=== PATIENT | female | born 1990 | race American Indian/Alaskan Native ===

== ENCOUNTER 2018-03-04 10:29 | Emergency (ER) | payer MEDICAID, OTHER ==
[2018-03-04 10:50] VITALS: BP 114/77
[2018-03-04 11:24] LABS: Bilirubin,Urine NEG (Negative); Blood,Urine MOD (Negative); Color,Urine Yellow (Yellow); Mucus,Urine 3+ /HPF; Protein,Urine <15 mg/dL mg/dL (Negative); Urobilinogen,Urine < 2.0 mg/dL (<2.0)
[2018-03-04 11:25] LABS: HCG Qualitative,Urine Negative (Negative)
--- NOTE | 2018-03-04 11:32 | Emergency Department Report ---
ED Abdominal Pain HPI - General Chief Complaint: Abdominal Pain Stated Complaint: LFT KNEE PAIN/STOMACH PAIN Time Seen by Provider: 03/04/18 10:58 Source: patient Mode of arrival: Ambulatory Limitations: No Limitations - History of Present Illness Initial Comments: 27-year-old female reports lower abdominal pain 1 month. Patient states her pain radiates around both sides to her back. Also reports urinary frequency. Patient states she is currently on her menstrual period, however prior to this patient denies vaginal bleeding or discharge. The patient also reports lateral left knee pain when walking up stairs. Denies swelling, denies any injury. No pain with walking on flat surface MD Complaint: abdominal pain -: month(s) (1) Location: suprapubic Radiation: back Migration to: no migration Severity: mild Quality: cramping, sharp Consistency: intermittent Improves With: nothing Worsens With: nothing Associated Symptoms: denies: nausea, vomiting, diarrhea, fever, dysuria - Related Data Home Medications Medication Instructions Recorded Confirmed Last Taken Vit 93/Iron Fum/Folic 1 each PO QDAY 10/22/13 10/24/13 10/01/13 20:00 [ Formula Tablet] 1 Previous Rx's Medication Instructions Recorded Last Taken Type Ferrous Sulfate [Feosol 325 MG tab] 325 mg PO QDAY #60 tablet 10/27/13 Unknown Rx Ibuprofen [Motrin 600 MG tab] 600 mg PO Q6H #30 tablet 10/27/13 Unknown Rx Vit-Fe Fumar-FA [ 1 each PO QDAY #60 tablet 10/27/13 Unknown Rx Vitamin] oxyCODONE /ACETAMINOPHEN [Percocet 1 tab PO Q6H PRN #30 tablet 10/27/13 Unknown Rx 5/325 mg] Naproxen [Naprosyn] 500 mg PO BID #20 tablet 03/04/18 Unknown Rx Phenazopyridine [Pyridium] 200 mg PO TID #6 tab 03/04/18 Unknown Rx Sulfamethoxazole/Trimethoprim 1 each PO BID #6 tablet 03/04/18 Unknown Rx [Bactrim DS TAB] Allergies Allergy/AdvReac Type Severity Reaction Status Date / Time No Known Allergies Allergy Verified 10/22/13 16:33 ED Review of Systems ROS: Stated complaint: LFT KNEE PAIN/STOMACH PAIN Other details as noted in HPI Comment: All other systems reviewed and negative Constitutional: denies: chills, fever Gastrointestinal: abdominal pain. denies: nausea, vomiting, diarrhea Genitourinary: frequency. denies: dysuria, discharge ED Past Medical Hx - Past Medical History Hx Hypertension: No Hx Congestive Heart Failure: No Hx Diabetes: No Hx Deep Vein Thrombosis: No Hx Renal Disease: No Hx Sickle Cell Disease: No Hx Seizures: No Hx Asthma: No Hx COPD: No Hx HIV: No - Surgical History Past Surgical History?: Yes Additional Surgical History: C section - Social History Smoking Status: Never Smoker Substance Use Type: None - Medications Home Medications: Home Medications Medication Instructions Recorded Confirmed Last Taken Type Vit 93/Iron Fum/Folic 1 each PO QDAY 10/22/13 10/24/13 10/01/13 20:00 History [ Formula Tablet] 1 Ferrous Sulfate [Feosol 325 MG tab] 325 mg PO QDAY #60 tablet 10/27/13 Unknown Rx Ibuprofen [Motrin 600 MG tab] 600 mg PO Q6H #30 tablet 10/27/13 Unknown Rx Vit-Fe Fumar-FA [ 1 each PO QDAY #60 tablet 10/27/13 Unknown Rx Vitamin] oxyCODONE /ACETAMINOPHEN [Percocet 1 tab PO Q6H PRN #30 tablet 10/27/13 Unknown Rx 5/325 mg] Naproxen [Naprosyn] 500 mg PO BID #20 tablet 03/04/18 Unknown Rx Phenazopyridine [Pyridium] 200 mg PO TID #6 tab 03/04/18 Unknown Rx Sulfamethoxazole/Trimethoprim 1 each PO BID #6 tablet 03/04/18 Unknown Rx [Bactrim DS TAB] ED Physical Exam - General Limitations: No Limitations General appearance: alert, in no apparent distress - Head Head exam: Present: atraumatic, normocephalic - Eye Eye exam: Present: normal appearance - ENT ENT exam: Present: mucous membranes moist - Respiratory Respiratory exam: Present: normal lung sounds bilaterally. Absent: respiratory distress - Cardiovascular Cardiovascular Exam: Present: regular rate, normal rhythm - GI/Abdominal GI/Abdominal exam: Present: soft. Absent: distended, tenderness - Extremities Exam Extremities exam: Present: normal inspection, full ROM. Absent: tenderness - Back Exam Back exam: Absent: CVA tenderness (R), CVA tenderness (L) - Neurological Exam Neurological exam: Present: alert, oriented X3 - Psychiatric Psychiatric exam: Present: normal affect, normal mood - Skin Skin exam: Present: warm, dry, intact, normal color ED Course Vital Signs 03/04/18 10:47 Temperature 98.0 F Pulse Rate 73 Respiratory 16 Rate Blood Pressure 114/77 O2 Sat by Pulse 100 Oximetry Critical care attestation.: If time is entered above; I have spent that time in minutes in the direct care of this critically ill patient, excluding procedure time. ED Disposition Clinical Impression: UTI (urinary tract infection), Internal derangement of knee Disposition: - TO HOME OR SELFCARE Is pt being admited?: No Condition: Stable Instructions: Urinary Tract Infection in Women (ED), Knee Pain (ED) Prescriptions: Naproxen [Naprosyn] 500 mg PO BID #20 tablet Phenazopyridine [Pyridium] 200 mg PO TID #6 tab Sulfamethoxazole/Trimethoprim [Bactrim DS TAB] 1 each PO BID #6 tablet Referrals: PRIMARY [facility] [Primary Care Provider] - 3-5 Days PHU LECHUGA MD [Staff Physician] - 3-5 Days Time of Disposition: 11:30
[2018-03-04] MEDS ORDERED: NACL 0.9% 1000 ML 2,000 ML ONE (12:00)
== END 2018-03-04 12:01 | disposition home or self-care (01) ==
LOC: ED 10:29
DX: N39.0 Urinary tract infection, site not specified (principal); M24.9 Joint derangement, unspecified
CPT/HCPCS: 81001; 81025; 99283; J7030

== ENCOUNTER 2018-04-22 09:03 | Emergency (ER) | payer OTHER ==
[2018-04-22 09:22] VITALS: BP 117/74
--- NOTE | 2018-04-22 10:32 | Emergency Department Report ---
Chief Complaint: Medical Clearance Stated Complaint: N/V Time Seen by Provider: 04/22/18 10:07 - HPI History of Present Illness: This is a 27-year-old female with no prior medical history presents to ED complaining of feelings of nausea and loss of appetite and stating she took a home test that was positive. Patient reports last menstrual period 03/04/2018. She states she wanted to find out if she is actually . She denies abdominal pain, pelvic pain, vaginal bleed, headache chest pain shortness of breath. The symptoms. - ROS Review of Systems: Denies all other symptoms - Exam Vital Signs: Vital Signs 04/22/18 09:18 Temperature 98.8 F Pulse Rate 87 Respiratory 16 Rate Blood Pressure 117/74 O2 Sat by Pulse 99 Oximetry Physical Exam: GENERAL: Alert and oriented x3, no apparent distress, Normal Gait, atraumatic. ABDOMEN: No organomegaly was noted,Positive bowel sounds, soft, and non- distended. . Nontender to palpation on all Quadrants, SKIN: Warm and dry, No lesions, No ulceration or induration present. MSE screening note: Focused history and physical exam performed. Due to findings the following was ordered: ED Medical Decision Making - Medical Decision Making Quantitative beta hCG ordered. Quantitative beta-hCG level was Discussed findings with the patient. Discussed the patient have follow-up with [facility] as referred. Referrals given to patient. Patient understands instructions and will follow-up. Patient says it's early and will need to follow-up. Discussed vitamins as needed daily. ED Disposition for MSE Clinical Impression: test positive Disposition: - TO HOME OR SELFCARE Is pt being admited?: No Does the pt Need Aspirin: No Condition: Stable Instructions: Morning Sickness (ED), (ED) Additional Instructions: Make sure to follow up with the primary care physician as discussed. Take all your medications as you've been prescribed. If you have any worsening symptoms or develop new symptoms please return to ED immediately. Prescriptions: Vit-Fe Fumar-FA [ Vitamin] 1 each PO QDAY #60 tablet Referrals: [facility] [Provider Group] - 3-5 Days [facility] [Provider Group] - 3-5 Days Forms: Work/School Release Form(ED) Time of Disposition: 11:46
== END 2018-04-22 11:56 | disposition home or self-care (01) ==
LOC: ED 09:03
DX: O26.91 Pregnancy related conditions, unspecified, first trimester (principal); R11.0 Nausea; Z3A.01 Less than 8 weeks gestation of pregnancy
CPT/HCPCS: 36415; 84702; 84703

== ENCOUNTER 2019-02-12 11:12 | Emergency (ER) | payer OTHER ==
--- NOTE | 2019-02-12 11:20 | Event Note ---
ED Screening Note ED Screening Note: rash to the left thigh x1 week having vaginal pain +dysuria no fever no abd pain LNMP: 02/01/19 had a baby two months ago, vaginal delivery This initial assessment/diagnostic orders/clinical plan/treatment(s) is/are subject to change based on patients health status, clinical progression and re-assessment by fellow clinical providers in the ED. Further treatment and workup at subsequent clinical providers discretion. Patient/guardian urged not to elope from the ED as their condition may be serious if not clinically assessed and managed. Initial orders include: UA
[2019-02-12 11:24] VITALS: BP 106/76
[2019-02-12 13:34] LABS: Bilirubin,Urine NEG (Negative); Blood,Urine NEG (Negative); Color,Urine Yellow (Yellow); Mucus,Urine 1+ /HPF; Protein,Urine <15 mg/dL mg/dL (Negative); Urobilinogen,Urine < 2.0 mg/dL (<2.0)
--- NOTE | 2019-02-12 14:15 | Emergency Department Report ---
ED Female HPI - General Chief complaint: Urogenital-Female Stated complaint: RASH/VAGINAL PAIN Time Seen by Provider: 02/12/19 11:19 Source: patient Mode of arrival: Ambulatory Limitations: No Limitations - History of Present Illness Complaint: vaginal discharge -: Gradual Location: suprapubic Radiation: non-radiating Severity: mild Quality: burning Consistency: constant Improves with: none Worsens with: urination Are you Now?: Yes Associated Symptoms: dysuria. denies: vaginal discharge, vaginal bleeding, abdominal pain, nausea/vomiting, headaches, loss of appetite, shortness of breat h, syncope, weakness - Related Data Sexually active: No Home Medications Medication Instructions Recorded Confirmed Last Taken Vit 93/Iron Fum/Folic 1 each PO QDAY 10/22/13 10/24/13 10/01/13 20:00 [ Formula Tablet] 1 Previous Rx's Medication Instructions Recorded Last Taken Type Ferrous Sulfate [Feosol 325 MG tab] 325 mg PO QDAY #60 tablet 10/27/13 Unknown Rx Ibuprofen [Motrin 600 MG tab] 600 mg PO Q6H #30 tablet 10/27/13 Unknown Rx oxyCODONE /ACETAMINOPHEN [Percocet 1 tab PO Q6H PRN #30 tablet 10/27/13 Unknown Rx 5/325 mg] Naproxen [Naprosyn] 500 mg PO BID #20 tablet 03/04/18 Unknown Rx Sulfamethoxazole/Trimethoprim 1 each PO BID #6 tablet 03/04/18 Unknown Rx [Bactrim DS TAB] Doxylamine Succinate/Vit B6 2 each PO QHS #40 tablet. 04/22/18 Unknown Rx [Elizabeth Kumar 10-10 mg Tablet] Vit-Fe Fumar-FA [ 1 each PO QDAY #60 tablet 04/22/18 Unknown Rx Vitamin] Mometasone Furoate [[place]] 1 applicatio TP QDAY #45 cream..g. 02/12/19 Unknown Rx Nitrofurantoin [place]/M-Cryst 100 mg PO Q12HR #20 capsule 02/12/19 Unknown Rx [Macrobid CAP] Phenazopyridine [Pyridium] 200 mg PO TID #6 tab 02/12/19 Unknown Rx Allergies Allergy/AdvReac Type Severity Reaction Status Date / Time No Known Allergies Allergy Verified 03/11/18 11:02 ED Review of Systems ROS: Stated complaint: RASH/VAGINAL PAIN Other details as noted in HPI Comment: All other systems reviewed and negative ED Past Medical Hx - Past Medical History Previous Medical History?: No Hx Hypertension: No Hx CVA: No Hx Heart Attack/AMI: No Hx Congestive Heart Failure: No Hx Diabetes: No Hx Deep Vein Thrombosis: No Hx Pulmonary Embolism: No Hx GERD: No Hx Liver Disease: No Hx Renal Disease: No Hx of Cancer: No Hx Sickle Cell Disease: No Hx Arthritis: No Hx Headaches / Migraines: No Hx Seizures: No Hx Kidney Stones: No Hx Psychiatric Treatment: No Hx Asthma: No Hx COPD: No Hx Dementia: No Hx HIV: No - Surgical History Past Surgical History?: Yes Hx Coronary Stent: No Hx Open Heart Surgery: No Hx Pacemaker: No Hx Internal Defibrillator: No Hx Cholecystectomy: No Hx Appendectomy: No Hx Breast Surgery: No Additional Surgical History: C section - Social History Smoking Status: Never Smoker - Medications Home Medications: Home Medications Medication Instructions Recorded Confirmed Last Taken Type Vit 93/Iron Fum/Folic 1 each PO QDAY 10/22/13 10/24/13 10/01/13 20:00 History [ Formula Tablet] 1 Ferrous Sulfate [Feosol 325 MG tab] 325 mg PO QDAY #60 tablet 10/27/13 Unknown Rx Ibuprofen [Motrin 600 MG tab] 600 mg PO Q6H #30 tablet 10/27/13 Unknown Rx oxyCODONE /ACETAMINOPHEN [Percocet 1 tab PO Q6H PRN #30 tablet 10/27/13 Unknown Rx 5/325 mg] Naproxen [Naprosyn] 500 mg PO BID #20 tablet 03/04/18 Unknown Rx Sulfamethoxazole/Trimethoprim 1 each PO BID #6 tablet 03/04/18 Unknown Rx [Bactrim DS TAB] Doxylamine Succinate/Vit B6 2 each PO QHS #40 tablet. 04/22/18 Unknown Rx [Elizabeth Kumar 10-10 mg Tablet] Vit-Fe Fumar-FA [ 1 each PO QDAY #60 tablet 04/22/18 Unknown Rx Vitamin] Mometasone Furoate [El[place]] 1 applicatio TP QDAY #45 cream..g. 02/12/19 Unknown Rx Nitrofurantoin [place]/M-Cryst 100 mg PO Q12HR #20 capsule 02/12/19 Unknown Rx [Macrobid CAP] Phenazopyridine [Pyridium] 200 mg PO TID #6 tab 02/12/19 Unknown Rx ED Physical Exam - General Limitations: No Limitations General appearance: alert, in no apparent distress - Head Head exam: Present: atraumatic, normocephalic - Eye Eye exam: Present: normal appearance, PERRL, EOMI Pupils: Present: normal accommodation - ENT ENT exam: Present: normal exam, mucous membranes moist, TM's normal bilaterally - Neck Neck exam: Present: normal inspection, full ROM - Respiratory Respiratory exam: Present: normal lung sounds bilaterally. Absent: respiratory distress, wheezes, rales, chest wall tenderness - Cardiovascular Cardiovascular Exam: Present: regular rate, normal rhythm. Absent: systolic murmur, diastolic murmur, rubs, gallop - GI/Abdominal GI/Abdominal exam: Present: soft, normal bowel sounds - External exam: Present: other (nurse electrician supervisor present) - Expanded Exam Expanded image: 1 - hyperpigmented papular rash to groin. no discharge - Extremities Exam Extremities exam: Present: normal inspection, full ROM, normal capillary refill - Back Exam Back exam: Present: normal inspection. Absent: CVA tenderness (R), CVA tenderness (L) - Neurological Exam Neurological exam: Present: alert, oriented X3, CN II-XII intact, normal gait - Psychiatric Psychiatric exam: Present: normal affect, normal mood - Skin Skin exam: Present: warm, dry, intact, normal color. Absent: rash ED Course Vital Signs 02/12/19 11:18 Temperature 98.8 F Pulse Rate 63 Respiratory 18 Rate Blood Pressure 106/76 Blood Pressure 106/76 [Right] O2 Sat by Pulse 100 Oximetry Critical care attestation.: If time is entered above; I have spent that time in minutes in the direct care of this critically ill patient, excluding procedure time. ED Disposition Clinical Impression: Rash and nonspecific skin eruption, UTI (urinary tract infection) Disposition: TO HOME OR SELFCARE Is pt being admited?: No Does the pt Need Aspirin: No Condition: Stable Instructions: Urinary Tract Infection in Women (ED), Phenazopyridine (By mouth), Acute Rash (ED) Prescriptions: Mometasone Furoate [Elocon] 1 applicatio TP QDAY #45 cream..g. Nitrofurantoin [place]/M-Cryst [Macrobid CAP] 100 mg PO Q12HR #20 capsule Phenazopyridine [Pyridium] 200 mg PO TID #6 tab Referrals: [facility] [Outside] - 3-5 Days
== END 2019-02-12 16:00 | disposition home or self-care (01) ==
LOC: ED 11:12
DX: N39.0 Urinary tract infection, site not specified (principal); R21 Rash and other nonspecific skin eruption; Z79.899 Other long term (current) drug therapy
CPT/HCPCS: 81001; 87086

== ENCOUNTER 2020-02-06 10:57 | Emergency (ER) | payer OTHER ==
[2020-02-06 11:13] VITALS: BP 102/54
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
[2020-02-06 14:56] LABS: HCG Qualitative,Urine Negative (Negative)
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
== END 2020-02-06 15:55 | disposition home or self-care (01) ==
LOC: ED 10:57
DX: S16.1XXA Strain of muscle, fascia and tendon at neck level, initial encounter (principal); S39.012A Strain of muscle, fascia and tendon of lower back, initial encounter; M25.562 Pain in left knee; Z98.890 Other specified postprocedural states; Z79.1 Long term (current) use of non-steroidal anti-inflammatories (NSAID); Z79.899 Other long term (current) drug therapy; V49.49XA Driver injured in collision with other motor vehicles in traffic accident, initial encounter; Y93.89 Activity, other specified; Y92.410 Unspecified street and highway as the place of occurrence of the external cause; Y99.8 Other external cause status
CPT/HCPCS: 72040; 72100; 81025

== ENCOUNTER 2020-11-18 16:19 | Emergency (ER) | payer OTHER ==
[2020-11-18 17:15] VITALS: BP 101/60
--- NOTE | 2020-11-18 17:36 | Emergency Department Report ---
ED General Adult HPI - General Chief complaint: Neck Pain/Injury Stated complaint: NECK PAIN AND HEADACHE Time Seen by Provider: 11/18/20 17:27 Source: patient Mode of arrival: Ambulatory Limitations: No Limitations - History of Present Illness Initial comments: Patient is a 30-year-old female presents emergency room with complaints of neck pain that began a week ago. She denies any fall or injury. She states a week ago she was having rhinorrhea, dry cough, headache, fever, no appetite. She states those symptoms resolved a couple of days ago. She states now she does has the neck discomfort with occasional headache. She denies any neck stiffness, numbness, weakness, vision changes, vomiting, diarrhea, chest pain, shortness of breath. No past medical history. No allergies to medications. Last menstrual cycle currently. She has not been vaccinated for COVID-19. She has not been tested for Covid since becoming sick. Severity scale (0 -10): 4 - Related Data Home Medications Medication Instructions Recorded Confirmed Last Taken Vit 93/Iron Fum/Folic 1 each PO QDAY 10/22/13 10/24/13 10/01/13 20:00 [ Formula Tablet] 1 Previous Rx's Medication Instructions Recorded Last Taken Type Ferrous Sulfate [Feosol 325 MG tab] 325 mg PO QDAY #60 tablet 10/27/13 Unknown Rx Ibuprofen [Motrin 600 MG tab] 600 mg PO Q6H #30 tablet 10/27/13 Unknown Rx oxyCODONE /ACETAMINOPHEN [Percocet 1 tab PO Q6H PRN #30 tablet 10/27/13 Unknown Rx 5/325 mg] Naproxen [Naprosyn] 500 mg PO BID #20 tablet 03/04/18 Unknown Rx Sulfamethoxazole/Trimethoprim 1 each PO BID #6 tablet 03/04/18 Unknown Rx [Bactrim DS TAB] Doxylamine Succinate/Vit B6 2 each PO QHS #40 tablet. 04/22/18 Unknown Rx [Elizabeth Kumar 10-10 mg Tablet] Vit-Fe Fumar-FA [ 1 each PO QDAY #60 tablet 04/22/18 Unknown Rx Vitamin] Mometasone Furoate [Elocon] 1 applicatio TP QDAY #45 cream..g. 02/12/19 Unknown Rx Nitrofurantoin Simpson/M-Cryst 100 mg PO Q12HR #20 capsule 02/12/19 Unknown Rx [Macrobid CAP] Phenazopyridine [Pyridium] 200 mg PO TID #6 tab 02/12/19 Unknown Rx Ibuprofen [Motrin] 800 mg PO Q8HR PRN #30 tablet 10/26/19 Unknown Rx Lidocaine Viscous 2% 10 ml PO Q4H PRN #120 ml 10/26/19 Unknown Rx Penicillin V Potassium 500 mg PO Q6H #40 tablet 10/26/19 Unknown Rx predniSONE [Deltasone] 40 mg PO QDAY #10 tab 10/26/19 Unknown Rx Naproxen [EC-Naprosyn] 500 mg PO BID PRN #14 tablet. 02/06/20 Unknown Rx Naproxen 375 mg PO BID PRN #14 tablet 11/18/20 Unknown Rx methOCARBAMOL [Robaxin TAB] 500 mg PO BID PRN #14 tab 11/18/20 Unknown Rx Allergies Allergy/AdvReac Type Severity Reaction Status Date / Time No Known Allergies Allergy Verified 03/11/18 11:02 ED Review of Systems ROS: Stated complaint: NECK PAIN AND HEADACHE Other details as noted in HPI Comment: All other systems reviewed and negative ED Past Medical Hx - Past Medical History Hx Hypertension: No Hx CVA: No Hx Heart Attack/AMI: No Hx Congestive Heart Failure: No Hx Diabetes: No Hx Deep Vein Thrombosis: No Hx Pulmonary Embolism: No Hx GERD: No Hx Liver Disease: No Hx Renal Disease: No Hx Sickle Cell Disease: No Hx Arthritis: No Hx Headaches / Migraines: No Hx Seizures: No Hx Kidney Stones: No Hx Psychiatric Treatment: No Hx Asthma: No Hx COPD: No Hx Dementia: No Hx HIV: No - Surgical History Hx Coronary Stent: No Hx Open Heart Surgery: No Hx Pacemaker: No Hx Internal Defibrillator: No Hx Cholecystectomy: No Hx Appendectomy: No Hx Breast Surgery: No Additional Surgical History: C section x1 - Social History Smoking Status: Never Smoker - Medications Home Medications: Home Medications Medication Instructions Recorded Confirmed Last Taken Type Vit 93/Iron Fum/Folic 1 each PO QDAY 10/22/13 10/24/13 10/01/13 20:00 History [ Formula Tablet] 1 Ferrous Sulfate [Feosol 325 MG tab] 325 mg PO QDAY #60 tablet 10/27/13 Unknown Rx Ibuprofen [Motrin 600 MG tab] 600 mg PO Q6H #30 tablet 10/27/13 Unknown Rx oxyCODONE /ACETAMINOPHEN [Percocet 1 tab PO Q6H PRN #30 tablet 10/27/13 Unknown Rx 5/325 mg] Naproxen [Naprosyn] 500 mg PO BID #20 tablet 03/04/18 Unknown Rx Sulfamethoxazole/Trimethoprim 1 each PO BID #6 tablet 03/04/18 Unknown Rx [Bactrim DS TAB] Doxylamine Succinate/Vit B6 2 each PO QHS #40 tablet. 04/22/18 Unknown Rx [Elizabeth Kumar 10-10 mg Tablet] Vit-Fe Fumar-FA [ 1 each PO QDAY #60 tablet 04/22/18 Unknown Rx Vitamin] Mometasone Furoate [Elocon] 1 applicatio TP QDAY #45 cream..g. 02/12/19 Unknown Rx Nitrofurantoin Simpson/M-Cryst 100 mg PO Q12HR #20 capsule 02/12/19 Unknown Rx [Macrobid CAP] Phenazopyridine [Pyridium] 200 mg PO TID #6 tab 02/12/19 Unknown Rx Ibuprofen [Motrin] 800 mg PO Q8HR PRN #30 tablet 10/26/19 Unknown Rx Lidocaine Viscous 2% 10 ml PO Q4H PRN #120 ml 10/26/19 Unknown Rx Penicillin V Potassium 500 mg PO Q6H #40 tablet 10/26/19 Unknown Rx predniSONE [Deltasone] 40 mg PO QDAY #10 tab 10/26/19 Unknown Rx Naproxen [EC-Naprosyn] 500 mg PO BID PRN #14 tablet. 02/06/20 Unknown Rx Naproxen 375 mg PO BID PRN #14 tablet 11/18/20 Unknown Rx methOCARBAMOL [Robaxin TAB] 500 mg PO BID PRN #14 tab 11/18/20 Unknown Rx ED Physical Exam - General Limitations: No Limitations General appearance: alert, in no apparent distress - Head Head exam: Present: atraumatic, normocephalic - Eye Eye exam: Present: normal appearance - ENT ENT exam: Present: mucous membranes moist - Neck Neck exam: Present: normal inspection, tenderness (mild bilateral C-spine paraspinal ttp, no midline C-spine ttp, no step offs, no deformities, no edema, no erythema, pt has FROM, she is able to look to the ceiling and to the floor with no pain or difficulty), full ROM. Absent: meningismus - Respiratory Respiratory exam: Present: normal lung sounds bilaterally. Absent: respiratory distress, wheezes, rales, rhonchi, stridor, chest wall tenderness, accessory muscle use, decreased breath sounds, prolonged expiratory - Cardiovascular Cardiovascular Exam: Present: regular rate, normal rhythm, normal heart sounds. Absent: systolic murmur, diastolic murmur, rubs, gallop - Neurological Exam Neurological exam: Present: alert, oriented X3, CN II-XII intact, normal gait. Absent: motor sensory deficit - Psychiatric Psychiatric exam: Present: normal affect, normal mood - Skin Skin exam: Present: warm, dry, intact ED Course Vital Signs 11/18/20 17:14 Temperature 98.6 F Pulse Rate 72 Respiratory 18 Rate Blood Pressure 101/60 [Left] O2 Sat by Pulse 100 Oximetry ED Medical Decision Making - Medical Decision Making Patient is a 30-year-old female presents emergency room with complaints of neck pain that began a week ago. She denies any fall or injury. She states a week ago she was having rhinorrhea, dry cough, headache, fever, no appetite. She states those symptoms resolved a couple of days ago. She states now she does has the neck discomfort with occasional headache. She denies any neck stiffness, numbness, weakness, vision changes, vomiting, diarrhea, chest pain, shortness of breath. No past medical history. No allergies to medications. Last menstrual cycle currently. She has not been vaccinated for COVID-19. She has not been tested for Covid since becoming sick. Vitals are normal. Patient is afebrile. On exam:mild bilateral C-spine paraspinal ttp, no midline C-spine ttp, no step offs, no deformities, no edema, no erythema, pt has FROM, she is able to look to the ceiling and to the floor with no pain or difficulty, no focal neuro deficits. Patient has no meningeal signs. Symptoms likely consistent with URI and possible neck strain. Patient has had no trauma. She has no fever at this time. She has no neck stiffness and has FROM. Patient given prescription for medications. Advised patient Please take medication as prescribed. Increase your fluid intake over the next several days. Follow-up with a primary care doctor for reexamination. Recommend for you to get outpatient COVID-19 testing and if positive to please self quarantine for 10 days from onset of symptoms. Return to emergency room immediately for any new or worsening symptoms. Critical care attestation.: If time is entered above; I have spent that time in minutes in the direct care of this critically ill patient, excluding procedure time. ED Disposition Clinical Impression: Neck pain URI (upper respiratory infection) Qualifiers: URI type: unspecified URI Qualified Code(s): J06.9 - Acute upper respiratory infection, unspecified Disposition: 01 HOME / SELF CARE / HOMELESS Is pt being admited?: No Does the pt Need Aspirin: No Condition: Stable Instructions: Muscle Strain, [id number], Upper Respiratory Infection, Adult, [id number] Additional Instructions: Please take medication as prescribed. Increase your fluid intake over the next several days. Follow-up with a primary care doctor for reexamination. Recommend for you to get outpatient COVID-19 testing and if positive to please self quarantine for 10 days from onset of symptoms. Return to emergency room immediately for any new or worsening symptoms. Prescriptions: Naproxen 375 mg PO BID PRN #14 tablet PRN Reason: pain methOCARBAMOL [Robaxin TAB] 500 mg PO BID PRN #14 tab PRN Reason: muscle spasm/pain Referrals: ROBERTO PRESCOTT MD [Staff Physician] - 2-3 Days [facility] [Provider Group] - 2-3 Days ADELFO BOGGS MD [Staff Physician] - 2-3 Days Time of Disposition: 17:35 Print Language: AZERI
== END 2020-11-18 18:19 | disposition home or self-care (01) ==
LOC: ED 16:19
DX: J06.9 Acute upper respiratory infection, unspecified (principal); M54.2 Cervicalgia
CPT/HCPCS: 99282

== ENCOUNTER 2021-06-05 15:48 | Emergency (ER) | payer SELFPAY ==
--- NOTE | 2021-06-05 21:17 | Emergency Department Report ---
ED Female HPI - General Chief complaint: Vaginal Bleeding Stated complaint: BLEEDING/CRAMPING 6WKS PREG Time Seen by Provider: 06/05/21 20:34 Source: patient Mode of arrival: Ambulatory Limitations: No Limitations - History of Present Illness Initial comments: Patient 30-year-old -[place] female who is G3, who is currently 6 weeks patient presents for abdominal cramping and spotting for 2 days. Patient states she was unable to get into see her STRAIGHT PIN MAKING MACHINE OPERATOR. Symptoms are rated at 4/10. Patient using 2 pads per day. There is no fevers no chills no nausea vomiting. No abnormal vaginal discharge. Patient has not had ABO concerns with previous pregnancies. MD Complaint: vaginal bleeding - Related Data Home Medications Medication Instructions Recorded Confirmed Last Taken Vit 93/Iron Fum/Folic 1 each PO QDAY 10/22/13 10/24/13 10/01/13 20:00 [ Formula Tablet] 1 Previous Rx's Medication Instructions Recorded Last Taken Type Ferrous Sulfate [Feosol 325 MG tab] 325 mg PO QDAY #60 tablet 10/27/13 Unknown Rx Ibuprofen [Motrin 600 MG tab] 600 mg PO Q6H #30 tablet 10/27/13 Unknown Rx oxyCODONE /ACETAMINOPHEN [Percocet 1 tab PO Q6H PRN #30 tablet 10/27/13 Unknown Rx 5/325 mg] Naproxen [Naprosyn] 500 mg PO BID #20 tablet 03/04/18 Unknown Rx Sulfamethoxazole/Trimethoprim 1 each PO BID #6 tablet 03/04/18 Unknown Rx [Bactrim DS TAB] Doxylamine Succinate/Vit B6 2 each PO QHS #40 tablet. 04/22/18 Unknown Rx [Elizabeth Kumar 10-10 mg Tablet] Vit-Fe Fumar-FA [ 1 each PO QDAY #60 tablet 04/22/18 Unknown Rx Vitamin] Mometasone Furoate [Elocon] 1 applicatio TP QDAY #45 cream..g. 02/12/19 Unknown Rx Nitrofurantoin Harper/M-Cryst 100 mg PO Q12HR #20 capsule 02/12/19 Unknown Rx [Macrobid CAP] Phenazopyridine [Pyridium] 200 mg PO TID #6 tab 02/12/19 Unknown Rx Ibuprofen [Motrin] 800 mg PO Q8HR PRN #30 tablet 10/26/19 Unknown Rx Lidocaine Viscous 2% 10 ml PO Q4H PRN #120 ml 10/26/19 Unknown Rx Penicillin V Potassium 500 mg PO Q6H #40 tablet 10/26/19 Unknown Rx predniSONE [Deltasone] 40 mg PO QDAY #10 tab 10/26/19 Unknown Rx Naproxen [EC-Naprosyn] 500 mg PO BID PRN #14 tablet. 02/06/20 Unknown Rx Naproxen 375 mg PO BID PRN #14 tablet 11/18/20 Unknown Rx methOCARBAMOL [Robaxin TAB] 500 mg PO BID PRN #14 tab 11/18/20 Unknown Rx Allergies Allergy/AdvReac Type Severity Reaction Status Date / Time No Known Allergies Allergy Verified 06/05/21 16:06 ED Review of Systems ROS: Stated complaint: BLEEDING/CRAMPING 6WKS PREG Other details as noted in HPI Constitutional: denies: chills, fever Eyes: denies: eye pain, eye discharge, vision change ENT: denies: ear pain, throat pain Respiratory: denies: cough, shortness of breath, wheezing Cardiovascular: denies: chest pain, palpitations Endocrine: no symptoms reported Gastrointestinal: abdominal pain. denies: nausea, vomiting, diarrhea Genitourinary: abnormal menses, other (Vaginal bleeding 6 weeks ). denies: urgency, dysuria, frequency, discharge Musculoskeletal: back pain Skin: denies: rash, lesions Neurological: denies: headache, weakness, paresthesias Psychiatric: denies: anxiety, depression Hematological/Lymphatic: denies: easy bleeding, easy bruising ED Past Medical Hx - Past Medical History Previous Medical History?: No Hx Hypertension: No Hx CVA: No Hx Heart Attack/AMI: No Hx Congestive Heart Failure: No Hx Diabetes: No Hx Deep Vein Thrombosis: No Hx Pulmonary Embolism: No Hx GERD: No Hx Liver Disease: No Hx Renal Disease: No Hx Sickle Cell Disease: No Hx Arthritis: No Hx Headaches / Migraines: No Hx Seizures: No Hx Kidney Stones: No Hx Psychiatric Treatment: No Hx Asthma: No Hx COPD: No Hx Dementia: No Hx HIV: No - Surgical History Hx Coronary Stent: No Hx Open Heart Surgery: No Hx Pacemaker: No Hx Internal Defibrillator: No Hx Cholecystectomy: No Hx Appendectomy: No Hx Breast Surgery: No Additional Surgical History: C section x1 - Social History Smoking Status: Never Smoker - Medications Home Medications: Home Medications Medication Instructions Recorded Confirmed Last Taken Type Vit 93/Iron Fum/Folic 1 each PO QDAY 10/22/13 10/24/13 10/01/13 20:00 History [ Formula Tablet] 1 Ferrous Sulfate [Feosol 325 MG tab] 325 mg PO QDAY #60 tablet 10/27/13 Unknown Rx Ibuprofen [Motrin 600 MG tab] 600 mg PO Q6H #30 tablet 10/27/13 Unknown Rx oxyCODONE /ACETAMINOPHEN [Percocet 1 tab PO Q6H PRN #30 tablet 10/27/13 Unknown Rx 5/325 mg] Naproxen [Naprosyn] 500 mg PO BID #20 tablet 03/04/18 Unknown Rx Sulfamethoxazole/Trimethoprim 1 each PO BID #6 tablet 03/04/18 Unknown Rx [Bactrim DS TAB] Doxylamine Succinate/Vit B6 2 each PO QHS #40 tablet. 04/22/18 Unknown Rx [Elizabeth Kumar 10-10 mg Tablet] Vit-Fe Fumar-FA [ 1 each PO QDAY #60 tablet 04/22/18 Unknown Rx Vitamin] Mometasone Furoate [Elocon] 1 applicatio TP QDAY #45 cream..g. 02/12/19 Unknown Rx Nitrofurantoin Harper/M-Cryst 100 mg PO Q12HR #20 capsule 02/12/19 Unknown Rx [Macrobid CAP] Phenazopyridine [Pyridium] 200 mg PO TID #6 tab 02/12/19 Unknown Rx Ibuprofen [Motrin] 800 mg PO Q8HR PRN #30 tablet 10/26/19 Unknown Rx Lidocaine Viscous 2% 10 ml PO Q4H PRN #120 ml 10/26/19 Unknown Rx Penicillin V Potassium 500 mg PO Q6H #40 tablet 10/26/19 Unknown Rx predniSONE [Deltasone] 40 mg PO QDAY #10 tab 10/26/19 Unknown Rx Naproxen [EC-Naprosyn] 500 mg PO BID PRN #14 tablet. 02/06/20 Unknown Rx Naproxen 375 mg PO BID PRN #14 tablet 11/18/20 Unknown Rx methOCARBAMOL [Robaxin TAB] 500 mg PO BID PRN #14 tab 11/18/20 Unknown Rx ED Physical Exam - General Limitations: No Limitations General appearance: alert, in no apparent distress - Head Head exam: Present: atraumatic, normocephalic - Eye Eye exam: Present: normal appearance, EOMI Pupils: Present: normal accommodation - ENT ENT exam: Present: mucous membranes moist - Neck Neck exam: Present: normal inspection, full ROM. Absent: tenderness - Respiratory Respiratory exam: Present: normal lung sounds bilaterally. Absent: respiratory distress, wheezes, stridor - Cardiovascular Cardiovascular Exam: Present: regular rate, normal rhythm, normal heart sounds. Absent: systolic murmur, diastolic murmur, rubs, gallop - GI/Abdominal GI/Abdominal exam: Present: soft, normal bowel sounds. Absent: distended, tenderness, guarding, rebound, rigid - Rectal Rectal exam: Present: deferred - External exam: Present: other (Deferred per patient) - Extremities Exam Extremities exam: Present: normal inspection, full ROM, normal capillary refill. Absent: tenderness, pedal edema - Back Exam Back exam: Present: normal inspection, full ROM. Absent: CVA tenderness (R), CVA tenderness (L) - Neurological Exam Neurological exam: Present: alert, oriented X3, CN II-XII intact, normal gait - Psychiatric Psychiatric exam: Present: normal affect, normal mood - Skin Skin exam: Present: warm, dry, intact, normal color. Absent: rash ED Course Vital Signs 06/05/21 16:05 Temperature 98.9 F Pulse Rate 81 Respiratory 16 Rate Blood Pressure 114/70 O2 Sat by Pulse 100 Oximetry ED Medical Decision Making - Lab Data Result diagrams: 06/05/21 21:21 Labs 06/05/21 06/05/21 21:21 21:21 WBC 9.6 RBC 4.33 Hgb 12.4 Hct 38.1 MCV 88 MCH 29 MCHC 33 RDW 14.0 Plt Count 304 Lymph % (Auto) 26.3 Harper % (Auto) 8.5 H Eos % (Auto) 2.4 Baso % (Auto) 1.1 Lymph # (Auto) 2.5 Harper # (Auto) 0.8 Eos # (Auto) 0.2 Baso # (Auto) 0.1 Seg Neutrophils % 61.7 Seg Neutrophils # 6.0 HCG, Quant 2094 H - Radiology Data Radiology results: report reviewed, image reviewed US OB <= 14 weeks fetus INDICATION / CLINICAL INFORMATION: vag bleeding preg beta hCG 2094 COMPARISON: None available. TECHNIQUE: Using a transcutaneous probe, multiple grayscale, color Doppler, and spectral Doppler images of the uterus and fetus were captured and stored. FINDINGS: Uterus measures 11.5 x 4.8 x 5.7 cm. The endometrial cavity is thickened and contains a single intrauterine gestational sac with single pole and yolk sac. The recorded heart rate is 46 bpm. Along the margin of the gestational sac there is a small focus of heterogeneous slightly hypoechoic echotexture measuring 0.8 x 0.2 x 0.8 cm compatible with small subchorionic hemorrhage. Sac size of 9.5 mm correlates with an estimated gestational age of 5 weeks 5 days. Mean crown-rump length of 2.2 mm correlates with an estimated gestational age of 5 weeks 5 days. EDC 01/31/2022. The right ovary measures 3.2 x 1.3 x 3.3 cm and is otherwise unremarkable. Left ovary measures 3.4 x 2.0 x 2.4 cm. Hypoechoic structure compatible with cyst measures 1.7 x 1.7 x 1.5 cm. Left ovary is otherwise unremarkable. The bilateral ovaries demonstrate presence of color flow. IMPRESSION: 1. Single intrauterine gestational sac as detailed. The recorded heart rate is 46 bpm. Small adjacent subchorionic hemorrhage suggested. Signer Name: Shirin Mcdermott II, MD Signed: 06/06/2021 12:46 AM Workstation Name: [id number] Transcribed By: BREONNA Dictated By: SHIRIN MCDERMOTT II, MD Electronically Authenticated By: SHIRIN MCDERMOTT II, MD Signed Date/Time: 06/06/2145 DD/ TD/TT: - Medical Decision Making Ultrasound single IUP 5 weeks and 5 days, heart rate 46 bpm. Labs noted normal, patient declines UA at this time. Patient will follow-up with OB /IT PROGRAM AUDITOR in 1 to 2 days. Diagnosis vaginal bleeding during first trimester. Patient advised pelvic rest, follow-up with STRAIGHT PIN MAKING MACHINE OPERATOR KARLA. Verbalized agreement and understanding of discharge plan patient DC'd home in stable condition at this time Critical care attestation.: If time is entered above; I have spent that time in minutes in the direct care of this critically ill patient, excluding procedure time. ED Disposition Clinical Impression: Vaginal bleeding during Qualifiers: Weeks of gestation: less than 8 weeks Qualified Code(s): Z3A.01 - Less than 8 weeks gestation of Disposition: HOME / SELF CARE / HOMELESS Is pt being admited?: No Does the pt Need Aspirin: No Condition: Stable Instructions: First Trimester of , Vaginal Bleeding During , First Trimester Additional Instructions: Pelvic rest, follow-up with your STRAIGHT PIN MAKING MACHINE OPERATOR in 1 to 2 days. Return to emergency department should symptoms worsen. Referrals: RUY BRIGGS MD [Staff Physician] - 3-5 Days Forms: Work/School Release Form(ED) Time of Disposition: 01:17
[2021-06-05 21:39] LABS: Basophils # (Auto) 0.1 K/mm3 (0.0-0.1); Basophils % (Auto) 1.1 % (0.0-1.8); Eosinophils # (Auto) 0.2 K/mm3 (0.0-0.4); Eosinophils % (Auto) 2.4 % (0.0-4.3); Hematocrit 38.1 % (30.3-42.9); Hemoglobin 12.4 gm/dl (10.1-14.3); Lymphocytes # (Auto) 2.5 K/mm3 (1.2-5.4); Lymphocytes % (Auto) 26.3 % (13.4-35.0); Mean Corpuscular HGB Conc 33 % (30-34); Mean Corpuscular Volume 88 fl (79-97); Monocytes # (Auto) 0.8 K/mm3 (0.0-0.8); Monocytes % (Auto) 8.5 % (0.0-7.3); Platelet Count 304 K/mm3 (140-440); Red Blood Count 4.33 M/mm3 (3.65-5.03)
--- NOTE | 2021-06-06 00:50 | Ultrasound Report ---
US OB <= 14 weeks fetus INDICATION / CLINICAL INFORMATION: vag bleeding preg beta hCG 2094 COMPARISON: None available. TECHNIQUE: Using a transcutaneous probe, multiple grayscale, color Doppler, and spectral Doppler imag es of the uterus and fetus were captured and stored. FINDINGS: Uterus measures 11.5 x 4.8 x 5.7 cm. The endometrial cavity is thickened and contains a single intrau terine gestational sac with single pole and yolk sac. The recorded heart rate is 46 bpm. Along the margin of the gestational sac there is a small focus of heterogeneous slightly hypoechoic e chotexture measuring 0.8 x 0.2 x 0.8 cm compatible with small subchorionic hemorrhage. Sac size of 9.5 mm correlates with an estimated gestational age of 5 weeks 5 days. Mean crown-rump length of 2.2 mm correlates with an estimated gestational age of 5 weeks 5 days. EDC 01/31/2022. The right ovary measures 3.2 x 1.3 x 3.3 cm and is otherwise unremarkable. Left ovary measures 3.4 x 2.0 x 2.4 cm. Hypoechoic structure compatible with cyst measures 1.7 x 1.7 x 1.5 cm. Left ovary is otherwise unremarkable. The bilateral ovaries demonstrate presence of color flow. IMPRESSION: 1. Single intrauterine gestational sac as detailed. The recorded heart rate is 46 bpm. Small ad jacent subchorionic hemorrhage suggested. Signer Name: Bird Collazo II, MD Signed: 06/06/2021 12:46 AM Workstation Name: [id number]
[2021-06-06 02:00] VITALS: BP 98/51
[2021-06-06 07:07] LABS: Bilirubin,Urine NEG (Negative); Blood,Urine NEG (Negative); Color,Urine Yellow (Yellow); Mucus,Urine FEW /HPF; Protein,Urine <15 mg/dL mg/dL (Negative); Urobilinogen,Urine < 2.0 mg/dL (<2.0)
== END 2021-06-06 02:00 | disposition home or self-care (01) ==
LOC: ED 15:48
DX: O20.9 Hemorrhage in early pregnancy, unspecified (principal); O26.891 Other specified pregnancy related conditions, first trimester; R10.9 Unspecified abdominal pain; Z3A.01 Less than 8 weeks gestation of pregnancy; Z79.899 Other long term (current) drug therapy
CPT/HCPCS: 36415; 76801; 81001; 84702; 85025; 99284